=== PATIENT | male | born 1995 | race Caucasian/White ===

== ENCOUNTER 2019-03-03 22:02 | Emergency (ER) | payer SELFPAY ==
[~2019-03-03] VITALS: Ht 175.3 cm; Wt 99.8 kg
--- NOTE | 2019-03-03 22:52 | Emergency Room Report ---
History of Present Illness General Chief Complaint: Upper Extremity Injury Source: Patient Present Illness HPI This is a 24-year-old male who is right-hand dominant. He presents with left shoulder pain. 3 days ago he fell on his left shoulder. Since then it hurts to move. No loss of consciousness. Denies any fever chills the pain is 8 out of 10. Better with rest. No other injury. Allergies: Coded Allergies: No Known Allergies (Unverified , 03/03/19) Patient History Past Medical History: see triage record, old chart reviewed Past Surgical History: none Pertinent Family History: none Social History: Denies: smoking Immunizations: other Reviewed Nursing Documentation: PMH: Agreed; PSxH: Agreed Review of Systems Eye: Denies: eye pain, blurred vision ENT: Denies: ear pain, nose congestion, throat swelling Respiratory: Denies: cough, shortness of breath Cardiovascular: Denies: chest pain, palpitations Gastrointestinal: Denies: abdominal pain, diarrhea, nausea, vomiting Musculoskeletal: Reports: joint pain; Denies: back pain Skin: Denies: rash Neurological: Denies: headache, numbness Endocrine: Denies: increased thirst, increased urine Hematologic/Lymphatic: Denies: easy bruising All Other Systems: negative except mentioned in HPI Physical Exam Vital Signs Date Time Temp Pulse Resp B/P (MAP) Pulse Ox O2 Delivery O2 Flow Rate FiO2 03/03/19 22:06 98.2 92 18 137/81 (99) 98 Room Air Vitals normal Sp02 EP Interpretation: reviewed, normal General Appearance: well appearing, no apparent distress, alert Head: normocephalic, atraumatic Eyes: bilateral eye PERRL, bilateral eye EOMI ENT: hearing grossly normal, normal pharynx Neck: full range of motion, supple, no meningismus Respiratory: chest non-tender, lungs clear, normal breath sounds Cardiovascular #1: regular rate, rhythm, no murmur Gastrointestinal: normal bowel sounds, non tender, no mass, no organomegaly, no bruit, non-distended Musculoskeletal: back normal, gait/station normal, normal range of motion, other - Left shoulder: He has tenderness at the junction of the AC joint and clavicle. Full range of motion but tender. Psychiatric: mood/affect normal Procedures Splinting Splinting : Consent: Verbal Location: left shoulder Pre-Made Type: sling Pre-Proc Neuro Vasc Exam: normal Post-Proc Neuro Vasc Exam: normal Patient Tolerated: Well Complications: None Medical Decision Making Diagnostic Impression: Primary Impression: Sprain of shoulder, left Qualified Codes: S43.402A - Unspecified sprain of left shoulder joint, initial encounter ER Course Patient with a left shoulder injury. No fracture dislocation. Will discharge home. Other X-Ray Diagnostic Results Other X-Ray Diagnostic Results : X-Ray ordered: Left shoulder x-rays # of Views/Limited Vs Complete: 3 View Indication: Pain EP Interpretation: Yes Interpretation: no dislocation, no soft tissue swelling, no fractures Impression: No acute disease Electronically Signed by: Scot Dumont MD Last Vital Signs Date Time Temp Pulse Resp B/P (MAP) Pulse Ox O2 Delivery O2 Flow Rate FiO2 03/03/19 22:06 98.2 92 18 137/81 (99) 98 Room Air Status: improved Disposition: HOME, SELF-CARE Condition: Stable Scripts Ibuprofen* (MOTRIN*) 600 Mg Tablet 600 MG ORAL THREE TIMES A DAY, #30 TAB 0 Refills Prov: Soct Dumont MD 03/03/19 Additional Instructions: Ice pack to the area. Wear sling for comfort. Follow-up with your doctor in 7 days. Return if worse. Scot Dumont MD Mar 03, 2019 22:52
--- NOTE | 2019-03-03 23:00 | NUR ---
ED Nurse Note: recieved pt from home, c/o left shouder pain x 3 days after injury, no deformity, pulses present, has paina y 11/26, pt wants to see if dislocated, pt able to move extremity but has pain.
[2019-03-03] MEDS ORDERED: IBUPROFEN600 MG ORAL (23:15)
[2019-03-03 23:30] VITALS: BP 129/84
--- NOTE | 2019-03-03 23:30 | NUR ---
ER DISCHARGE NOTE: Patient is cleared to be discharged per ERMD, pt is aox4, on room air, with stable vital signs. pt was given dc and prescription instructions, pt was able to verbalize understanding, pt id band removed without complications. pt is able to ambulate with steady gait. pt took all belongings.
[2019-03-03 23:44] VITALS: BP 137/81
--- NOTE | 2019-03-04 14:05 | Diagnostic Imaging Report ---
Indication: left shoulder pain Findings: 3 views of the left shoulder were obtained. Alignment of the left shoulder is normal. No acute fracture is identified. Soft tissues are unremarkable. Impression: No acute injury
== END 2019-03-03 23:45 | disposition home or self-care (01) ==
LOC: EMR 22:51
DX: S43.402A Unspecified sprain of left shoulder joint, initial encounter (principal); W19.XXXA Unspecified fall, initial encounter; Y92.9 Unspecified place or not applicable
CPT/HCPCS: 29105; 99283

== ENCOUNTER 2019-03-26 22:17 | Emergency (ER) | payer SELFPAY ==
[~2019-03-26] VITALS: Ht 175.3 cm; Wt 99.8 kg
[~2019-03-26 22:17] MED LIST: IBUPROFEN600 MG ORAL
[2019-03-26] MEDS ORDERED: NKM (22:26)
[2019-03-26] MEDS ORDERED: CEPHALEXIN500 MG ORAL (23:11)
[2019-03-26] MEDS ORDERED: BACITRACIN ZIN1 EACH TOPIC (23:11)
--- NOTE | 2019-03-26 23:16 | Emergency Room Report ---
History of Present Illness General Chief Complaint: Skin Rash/Abscess Source: Patient Present Illness HPI 24-year-old male presents after increased discomfort to his feet. Patient reports having itchiness and discomfort to the lateral aspect of his right foot. He reports having fungal infection and had been using a culture result cream without any improvement. Patient had gradual onset of symptoms over the past few weeks. He denies any fever. He denies any other immunocompromise. Allergies: Coded Allergies: AMOXICILLIN (Verified Allergy, Unknown, 03/26/19) CLAVULANIC ACID (Verified Allergy, Unknown, 03/26/19) Nursing Documentation-[facility] Past Medical History: No History, Except For Hx Asthma: Yes Physical Exam Vital Signs Date Time Temp Pulse Resp B/P (MAP) Pulse Ox O2 Delivery O2 Flow Rate FiO2 03/26/19 22:23 98.4 78 14 139/79 (99) 96 Room Air General Appearance: well appearing, no apparent distress, alert, GCS 15 Head: normocephalic, atraumatic ENT: hearing grossly normal, normal voice Neck: full range of motion, supple Respiratory: no respiratory distress, speaking full sentences Cardiovascular #1: normal inspection Musculoskeletal: normal inspection Neurologic: normal inspection, alert, oriented x3, responsive, normal gait Psychiatric: mood/affect normal Skin: other - bilateral crusting and yellowing to toes, and web spaces, no erythema, lateral foot with slight crusting Medical Decision Making Diagnostic Impression: Primary Impression: Fungal infection of foot ER Course Presented for skin rash. Differential diagnosis include was not limited to tinea, scabies, cellulitis, among others. Patient has a benign exam and does not appear to require any further imaging or laboratory testing at this time. Patient appears to have a fungal infection. There does appear to be some secondary infection where he had opened up the wound. Patient will be given prescription for antibiotics. Patient will be discharged home. He appears to be stable. He is advised to return if worse he is advised to discontinue Keflex if he began having any problems with medication. Last Vital Signs Date Time Temp Pulse Resp B/P (MAP) Pulse Ox O2 Delivery O2 Flow Rate FiO2 03/26/19 22:23 98.4 78 14 139/79 (99) 96 Room Air Status: improved Disposition: HOME, SELF-CARE Condition: Stable Scripts Cephalexin* (KEFLEX*) 500 Mg Capsule 500 MG ORAL EVERY 6 HOURS, #28 CAP Prov: Maged Roche MD 03/26/19 Bacitracin Zinc* (BACITRACIN ZINC*) 1 Each Packet 1 APPLIC TOPIC THREE TIMES A DAY, #14 PACKET Prov: Maged Roche MD 03/26/19 Referrals: NOT CHOSEN [facility]/MD,REFERRING (PCP) Patient Instructions: Athlete's Foot, [facility] Maged Roche MD Mar 26, 2019 23:16
[2019-03-26 23:25] VITALS: BP 139/79
== END 2019-03-26 23:25 | disposition home or self-care (01) ==
LOC: EMR 22:59
DX: B48.8 Other specified mycoses (principal); J45.909 Unspecified asthma, uncomplicated; Z88.0 Allergy status to penicillin; Z88.8 Allergy status to other drugs, medicaments and biological substances
CPT/HCPCS: 99282